=== PATIENT | male | born 1945 | race Caucasian/White ===

== ENCOUNTER 2024-04-02 00:53 | Emergency (ER) | payer MEDICARE, OTHER, SELFPAY ==
[2024-04-02 00:53] VITALS: BP 172/70; PULSE 62; RESP 18; TEMP 36.8; O2SAT 98; BMI 30.4
[2024-04-02 00:59] VITALS: BP 172/70; PULSE 60; RESP 18; TEMP 36.8; O2SAT 95
--- NOTE | 2024-04-02 01:54 | RAD_ITS ---
INDICATION: COUGH EXAMINATION/TECHNIQUE: X-RAY - XR Chest 2 Views COMPARISON: No relevant prior comparison study available FINDINGS: LINES/DEVICES: None. LUNGS: No consolidation, edema or effusion. No pneumothorax. MEDIASTINUM AND CARDIOVASCULAR STRUCTURES: Cardiac silhouette not enlarged. Central airways and mediastinal contour are unremarkable. BONES AND SOFT TISSUES: Unremarkable. RAD/Chest PA and Lateral IMPRESSION: No radiographic evidence of acute cardiopulmonary disease. Electronically Signed: Gray Mejia MD at 3:05 EDT ,
--- NOTE | 2024-04-02 01:54 | EDS_ITS ---
HPI HPI - URI History of Present Illness Chief Complaint: Sore Throat Informant: patient Onset/Context/Timing Onset: Days (4) Context: Gradual Onset Timing: Continuous Quality: Congested Location: Head and chest Worsened by: - (Laying flat) Relieved by: - (Nothing) Associated Symptoms Associated Symptoms: Positive for Nasal Congestion, Shortness of Breath and Nonproductive cough; Negative for Headache, Sinus Pressure, Nausea, Vomiting, Diarrhea, Chest Pain, Hemoptysis or Productive Cough Narrative Narrative: Patient presents with cold symptoms that have been getting worse over the last 4 days. Patient states he has been feeling congested in his head and chest. Patient states that his drainage is worse when he lays flat. Patient states he feels like the drainage is choking him when he lays flat. The patient does admit to a sore throat and some pain and pressure in his ears. Patient admits to some rhinorrhea and postnasal drainage. Patient admits to a cough but denies any sputum production. Patient states the cough is making him more short of breath. Patient denies any fevers or chills. ROS ROS ED Constitutional Constitutional ED: Denies chills or fever(s) Eyes Eyes: Denies blurry vision or change in vision ENT ENT ED: Reports ear pain, rhinorrhea and sore throat Cardiovascular Cardiovascular: Denies chest pain or palpitations Respiratory/Chest Respiratory/Chest: Reports cough and dyspnea Gastrointestinal Gastrointestinal: Denies nausea or vomiting Genitourinary Genitourinary ED: Denies dysuria or hematuria Musculoskeletal Musculoskeletal: Denies back pain or neck pain Integumentary Denies abscess or rash Neurologic Neurologic: Denies headache(s) or weakness Allergic/Immunologic Allergic/Immunologic ED: Denies mouth swelling or urticaria [facility] Medical History Hyperlipemia Hypertension Home Medications ?Medication ?Instructions ?Recorded ?Last Taken ?Type aspirin 81 mg capsule 81 mg PO DAILY 04/02/24 Unknown History atorvastatin 20 mg tablet 20 mg PO QHS 04/02/24 Unknown History ipratropium bromide 21 mcg (0.03 2 spray intranasal BID 04/02/24 Unknown History %) nasal spray lisinopril 10 mg tablet 10 mg PO DAILY 04/02/24 Unknown History Allergy/AdvReac Type Severity Reaction Status Date / Time No Known Allergies Allergy Verified 04/02/24 00:54 Surgical History History of quadruple bypass Social History Smoking Status: Never smoker EXAM Physical Exam Const Vital Signs: 04/02/24 00:53 04/02/24 00:59 Temperature 98.3 F 98.3 F Temperature Source Oral Oral Pulse Rate 62 60 Respiratory Rate 18 18 Blood Pressure 172/70 H 172/70 H Blood Pressure Mean 104 104 Pulse Ox 98 95 Oxygen Delivery Method Room Air Room Air Positive well nourished and well developed General Appearance ED: well developed and NAD HEENT Reports moist mucous membranes Neck supple, no meningeal signs and no JVD Resp normal respiratory effort and clear to auscultation bilaterally Cardio Rate: regular rate Rhythm: regular rhythm GI non-tender and non-distended Palpation: soft Neuro oriented x3, CN's II-XII intact bilaterally and no sensory deficits noted Sensorium / Orientation: alert Motor Exam: strength 5/5 throughout Psych mental status grossly normal MDM MDM MDM Narrative Medical decision making narrative: Differential diagnosis includes viral upper respiratory infection, bronchitis, sinusitis, COVID, pneumonia, and strep pharyngitis. Chest x-ray will be obtained to assess for pneumonia and bronchitis. COVID-19, influenza, and RSV PCR will be obtained to assess for viral illness. Rapid strep will be obtained to assess for strep pharyngitis. Lab Data Lab results narrative: COVID-19 PCR was reviewed and was negative. Influenza PCR was reviewed and was negative for influenza A and influenza B. RSV PCR was reviewed and was negative. Rapid strep was reviewed and was negative. Radiography Diagnostic Testing: PA and lateral chest x-ray was obtained. There are 2 views. On my independent interpretation, lung jimenez are clear. There is normal cardiac silhouette. Bony thorax is normal. There is no acute process noted. Radiologist also interpreted the x-ray and agrees. Treatment and Re-Evaluation Narrative: Patient was advised that this is most likely a viral upper respiratory infection. Patient was instructed to drink plenty of fluids. Patient was instructed to take Tylenol or ibuprofen as needed for pain. Patient was instructed use [id number] decongestions as needed. Patient was instructed to follow-up with his primary care physician in 5 to 7 days. Patient was instructed return if worse in any way. Patient understood and was agreeable with the plan. All questions were answered. Discharge Plan Triage Chief Complaint: Sore Throat ED Provider: Luis M Tenorio Dx/Rx/DC Orders Clinical Impression: Viral upper respiratory infection, Viral illness Instructions: ED URI, Viral, No Abx (Adult) Prescriptions: No Action aspirin 81 mg capsule 81 mg PO DAILY ipratropium bromide 21 mcg (0.03 %) spray,non-aerosol 2 spray intranasal BID Rx Instructions: administer into each nostril lisinopril 10 mg tablet 10 mg PO DAILY atorvastatin 20 mg tablet 20 mg PO QHS Primary Care Provider: MONIKA SHAW Referrals: [facility] Doctor,Out of [Non-Staff] - 5-7 Days Print Language: Latvian Disposition Disposition: Home, Self Care
[2024-04-02 03:59] VITALS: BP 148/73; PULSE 53; RESP 14; TEMP 36.1; O2SAT 96
== END 2024-04-02 04:00 | disposition home or self-care (01) ==
PROVIDERS: Emergency Provider Emergency Medicine; Visit Provider Emergency Medicine
DX: J06.9 Acute upper respiratory infection, unspecified (principal); E78.5 Hyperlipidemia, unspecified; R06.02 Shortness of breath; I10 Essential (primary) hypertension; B34.9 Viral infection, unspecified; R07.9 Chest pain, unspecified; Z79.82 Long term (current) use of aspirin; Z79.899 Other long term (current) drug therapy
CPT/HCPCS: 71046; 87631; 87651; 99282